=== PATIENT | male | born 1995 | race Two or more races ===

== ENCOUNTER 2020-03-10 08:08 | Emergency (ER) | payer OTHER ==
[~2020-03-10] VITALS: Ht 188 cm; Wt 116.6 kg
--- NOTE | 2020-03-10 08:37 | NUR ---
"I HIT THE TOP OF MY HEAD AT WORK 15 DAYS AGO AND IT MADE MY BACK CRACK WHEN IT KIND OF CRUSHED IT AND MY BACK IS HURTING REALLY BAD AND AT TIMES MY HEAD HURT TOO". NAUSEA AT TIMES. DENIES EMESIS. BLURRY VISION. PT AMBULATED WITH STEADY GAIT. 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 ALL QUESTIONS ANSWERED. CALL LIGHT IN REACH.
--- NOTE | 2020-03-10 08:45 | NUR ---
PT TO XRAY
[2020-03-10] MEDS ORDERED: METHOCARBAMOL 750 MG TABLET PO ONE (09:00)
[2020-03-10] MEDS ORDERED: ACETAMINOPHEN 500 MG TABLET PO ONE (09:00)
[2020-03-10] MEDS ORDERED: METHOCARBAMOL 750 MG TABLET ONE (09:08)
[2020-03-10] MEDS ORDERED: ACETAMINOPHEN 500 MG TABLET ONE (09:09)
[2020-03-10 10:05] VITALS: BP 122/65
== END 2020-03-10 10:07 | disposition home or self-care (01) ==
LOC: ED 09:27
DX: S16.1XXA Strain of muscle, fascia and tendon at neck level, initial encounter (principal); S29.012A Strain of muscle and tendon of back wall of thorax, initial encounter; S39.012A Strain of muscle, fascia and tendon of lower back, initial encounter; S09.90XA Unspecified injury of head, initial encounter; G89.11 Acute pain due to trauma; W22.8XXA Striking against or struck by other objects, initial encounter; Y93.89 Activity, other specified; Y92.89 Other specified places as the place of occurrence of the external cause; Y99.8 Other external cause status
CPT/HCPCS: 70450; 72072; 72110; 72125; 99285

== ENCOUNTER 2020-03-31 22:33 | Emergency (ER) | payer OTHER ==
[~2020-03-31] VITALS: Ht 188 cm; Wt 116.0 kg
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
--- NOTE | 2020-03-31 23:59 | NUR ---
PT TAKES ONE PAIN PILL HOWEVER UNABLE TO SAY WHAT
[2020-04-01] MEDS ORDERED: MORPHINE SULFATE 4 MG/ML, 1ML ONE (00:12)
[2020-04-01] MEDS ORDERED: ONDANSETRON 2MG/ML, 2ML ONE (00:12)
--- NOTE | 2020-04-01 00:24 | NUR ---
PT MEDICATED PER NOV. RESTING IN [facility], APPEARS COMFORTABLE WCTM.
[2020-04-01] MEDS ORDERED: MORPHINE SULFATE 4 MG/ML, 1ML IVPush PRN (00:30)
[2020-04-01] MEDS ORDERED: ONDANSETRON 2MG/ML, 2ML IVPush ONE (00:30)
[2020-04-01 00:44] LABS: ALBUMIN 3.6 g/dL (3.4-5.0); ANION GAP 7 mmol/L (5-15); CALCIUM 8.9 mg/dL (8.5-10.1); CHLORIDE 103 mmol/L (98-107); CREATININE 0.99 mg/dL (0.7-1.3)
[2020-04-01 00:47] LABS: CREATINE KINASE, TOTAL 71 U/L (39-308)
[2020-04-01 01:00] VITALS: BP 126/62
--- NOTE | 2020-04-01 01:21 | NUR ---
PT RESTING IN GURNEY, PAIN DECREASED, APPEARS MORE COMFORTABLE. NAD. VSS. WCTM. WAITING FOR CT RESULTS.
[2020-04-01] MEDS ORDERED: KETOROLAC 30 MG/1 ML IVPush ONE (02:00)
== END 2020-04-01 02:42 | disposition home or self-care (01) ==
LOC: ED 23:30
DX: F07.81 Postconcussional syndrome (principal); R11.2 Nausea with vomiting, unspecified; H53.8 Other visual disturbances; M54.5 Low back pain
CPT/HCPCS: 36415; 80048; 82040; 82550; 96374; 96375; 99284; J1885; J2270; J2405